=== PATIENT | male | born 1955 | race Caucasian/White ===

== ENCOUNTER 2021-08-10 12:59 | Emergency (ER) | payer BC ==
[2021-08-10 13:25] VITALS: BP 151/94; PULSE 78; RESP 20; TEMP 98.6
--- NOTE | 2021-08-10 14:02 | ED ---
Eye Problem HPI - General Chief complaint: Eye Problems Stated complaint: loss of vision, left eye Time Seen by Provider: 08/10/21 13:34 Source: patient, RN notes reviewed Mode of arrival: ambulatory Limitations: no limitations - History of Present Illness Initial comments: Patient is a 65-year-old male presenting to the emergency Department with compla ints of irritation to his left eye for the last 3 days. He states he started having some yellowish-green discharge from the eye, it was red and feels irritated. He denies any recent skin I pain, no floaters, no black spots. He does wear contacts, he did take out his left contact when his symptoms started. He denied any blurry vision before the contact was removed. He denies any injuries or trauma. He denies any headaches or dizziness. He has no further complaints. His vital signs are stable upon arrival. - Related Data Previous Rx's Medication Instructions Recorded Polymyxin B-Trimeth Sulf Ophth 1 drops LEFT EYE Q4H 7 Days #10 ml 08/10/21 [Polytrim Opthalmic] Allergies Allergy/AdvReac Type Severity Reaction Status Date / Time No Known Allergies Allergy Verified 08/10/21 13:25 Review of Systems ROS Statement: Those systems with pertinent positive or pertinent negative responses have been documented in the HPI. ROS Other: All systems not noted in ROS Statement are negative. Past Medical History Past Medical History: Hyperlipidemia, Hypertension History of Any Multi-Drug Resistant Organisms: None Reported Past Surgical History: Appendectomy Additional Past Surgical History / Comment(s): Fusion Past Psychological History: No Psychological Hx Reported Smoking Status: Never smoker Past Alcohol Use History: None Reported Past Drug Use History: None Reported General Exam - General Exam Comments Initial Comments: GENERAL: Patient is well-developed and well-nourished. Patient is nontoxic and in no acute distress. HEAD: Atraumatic, normocephalic. EYES: Pupils equal round and reactive to light, extraocular movements intact, sclera anicteric. Left eye is slightly injected, yellow/green drainage noted in the corners of the eyes. Eyelids were unremarkable. Visual acuity bilateral eyes is 20/25. ENT: Moist mucous membranes. NECK: Normal range of motion, supple without lymphadenopathy or JVD. LUNGS: Unlabored respirations. Breath sounds clear to auscultation bilaterally and equal. No wheezes rales or rhonchi. HEART: Regular rate and rhythm without murmurs, rubs or gallops. NEUROLOGICAL: Patient is alert and oriented x 3. SKIN: Warm, Dry, normal turgor, no rashes or lesions noted. Limitations: no limitations Course Vital Signs 08/10/21 13:21 Temperature 98.6 F Pulse Rate 78 Respiratory 20 Rate Blood Pressure 151/94 O2 Sat by Pulse 97 Oximetry Medical Decision Making - Medical Decision Making Patient is a 65-year-old male here with left eye irritation for the past 3 days. He has positive drainage, slightly injected. No foreign body seen. He does wear contacts, he did take the contact out the last 3 days when his symptoms began. His exam is consistent with a bacterial conjunctivitis. Patient be started on antibiotic eyedrops. I recommended following up with his eye doctor. He states he lives in [place] and will return there this weekend and will follow up when he is back home. Return parameters were discussed with him and he verbalized understanding. Disposition Clinical Impression: Conjunctivitis, left eye Disposition: HOME SELF-CARE Condition: Stable Instructions (If sedation given, give patient instructions): Conjunctivitis (ED) Additional Instructions: Please return to the Emergency Department if symptoms worsen or any other concerns. Use antibiotic eyedrops as prescribed. Follow-up with your eye doctor if symptoms persist. Prescriptions: Polymyxin B-Trimeth Sulf Ophth [Polytrim Opthalmic] 1 drops LEFT EYE Q4H 7 Days #10 ml Is patient prescribed a controlled substance at d/c from ED?: No Referrals: None,Stated [Primary Care Provider] - 1-2 days Time of Disposition: 14:02
== END 2021-08-10 14:22 | disposition home or self-care (01) ==
LOC: EC 12:59
DX: H10.89 Other conjunctivitis (principal); I10 Essential (primary) hypertension; R78.5 Finding of other psychotropic drug in blood; Z90.49 Acquired absence of other specified parts of digestive tract
CPT/HCPCS: 99283

== ENCOUNTER 2023-06-24 09:08 | Observation (INO) | payer MEDICARE ==
--- NOTE | 2023-06-24 09:32 | ED ---
General Adult HPI - General Chief complaint: Chest Pain Stated complaint: Chest Pain Time Seen by Provider: 06/24/23 09:31 Source: patient, RN notes reviewed Mode of arrival: wheelchair Limitations: no limitations - History of Present Illness Initial comments: Patient is a pleasant 67-year-old male presenting to the emergency department with concerns of chest discomfort. Onset of symptoms was a couple hours ago, awoke him from sleep. Discomfort feels like tightness without radiation. Patient may have some minimal dyspnea. No history of similar symptoms previously. Discomfort is 8/10. No associated diaphoresis or nausea. Symptoms are somewhat worse with exertion. Sometimes positions make symptoms worse as well. No calf pain. - Related Data Previous Rx's Medication Instructions Recorded Polymyxin B-Trimeth Sulf Ophth 1 drops LEFT EYE Q4H 7 Days #10 ml 08/10/21 [Polytrim Opthalmic] Allergies Allergy/AdvReac Type Severity Reaction Status Date / Time No Known Allergies Allergy Verified 06/24/23 09:13 Review of Systems ROS Statement: Those systems with pertinent positive or pertinent negative responses have been documented in the HPI. ROS Other: All systems not noted in ROS Statement are negative. Constitutional: Denies: fever Eyes: Denies: eye pain ENT: Denies: ear pain Respiratory: Reports: as per HPI. Denies: cough Cardiovascular: Reports: as per HPI, chest pain Endocrine: Denies: fatigue Gastrointestinal: Denies: abdominal pain Musculoskeletal: Denies: back pain Past Medical History Past Medical History: Hyperlipidemia, Hypertension History of Any Multi-Drug Resistant Organisms: None Reported Past Surgical History: Appendectomy Additional Past Surgical History / Comment(s): cranial Fusion Past Psychological History: No Psychological Hx Reported Smoking Status: Never smoker Past Alcohol Use History: None Reported Past Drug Use History: None Reported General Exam Limitations: no limitations General appearance: alert, in no apparent distress Head exam: Present: normocephalic Eye exam: Present: normal appearance Neck exam: Present: normal inspection Respiratory exam: Present: normal lung sounds bilaterally. Absent: chest wall tenderness Cardiovascular Exam: Present: regular rate, normal rhythm, normal heart sounds Expanded Peripheral pulses: 2+: Radial (R), Radial (L), Posterior Tibialis (R), Posterior Tibialis (L) GI/Abdominal exam: Present: soft. Absent: distended, tenderness Extremities exam: Present: normal inspection. Absent: pedal edema, calf tenderness Neurological exam: Present: alert Psychiatric exam: Present: normal affect, normal mood Skin exam: Present: normal color Course Vital Signs 06/24/23 06/24/23 06/24/23 09:13 10:14 10:24 Temperature 97.6 F Pulse Rate 79 80 77 Respiratory 18 16 20 Rate Blood Pressure 156/65 152/100 135/90 O2 Sat by Pulse 97 100 98 Oximetry 06/24/23 06/24/23 10:34 10:41 Temperature Pulse Rate 86 92 Respiratory 20 26 H Rate Blood Pressure 139/100 135/91 O2 Sat by Pulse 96 96 Oximetry EKG Findings - EKG Results: EKG: interpreted by ERMD, sinus rhythm, normal axis, normal QRS, normal ST/T Medical Decision Making - Medical Decision Making Was pt. sent in by a medical professional or institution (, PA, MARKETING SERVICES VICE PRESIDENT, urgent care, hospital, or long term...) When possible be specific @ -No Did you speak to anyone other than the patient for history (EMS, parent, family, police, friend...)? What history was obtained from this source @ -No Did you review nursing and triage notes (agree or disagree)? Why? @ -I reviewed and agree with nursing and triage notes Were old charts reviewed (outside hosp., previous admission, EMS record, old EKG, old radiological studies, urgent care reports/EKG's, long term records)? Report findings @ -No old charts were reviewed Differential Diagnosis (chest pain, altered mental status, abdominal pain women, abdominal pain men, vaginal bleeding, weakness, fever, dyspnea, syncope, headache, dizziness, GI bleed, back pain, seizure, CVA, palpatations, mental health, musculoskeletal)? @ -Differential Chest Pain: Stable Angina, Unstable Angina, STEMI, NSTEMI Aortic Dissection, Pneumothorax, Musculoskeletal, Esophageal Spasm GERD, Cholecystitis, Pancreatitis, Zoster, this is not meant to be an all-inclusive list. EKG interpreted by me (3pts min.). @ -As above X-rays interpreted by me (1pt min.). @ -Chest x-ray shows hyperinflation, no acute infiltrate CT interpreted by me (1pt min.). @ -None done U/S interpreted by me (1pt. min.). @ -None done What testing was considered but not performed or refused? (CT, X-rays, U/S, labs)? Why? @ -None What meds were considered but not given or refused? Why? @ -None Did you discuss the management of the patient with other professionals (professionals i.e. , PA, MARKETING SERVICES VICE PRESIDENT, lab, RT, psych nurse, social media content manager, [employer], teacher, contracting officer, bottle caser)? Give summary @ -Case was discussed with Dr. Ramsay, covering hospital call, who will admit. Was smoking cessation discussed for >3mins.? @ -No Was critical care preformed (if so, how long)? @ -No Were there social determinants of health that impacted care today? How? (Homelessness, low income, unemployed, alcoholism, drug addiction, transportation, low edu. Level, literacy, decrease access to med. care, senior care, rehab)? @ -No Was there de-escalation of care discussed even if they declined (Discuss DNR or withdrawal of care, Hospice)? DNR status @ -No What co-morbidities impacted this encounter? (DM, HTN, Smoking, COPD, CAD, Cancer, CVA, ARF, Chemo, Hep., AIDS, mental health diagnosis, sleep apnea, morbid obesity)? @ -None Was patient admitted / discharged? Hospital course, mention meds given and route, prescriptions, significant lab abnormalities, going to OR and other pertinent info. @ -Patient reevaluated. Patient and family updated on results and plan. Patient will be admitted with cardiac consult. Admission orders written. Undiagnosed new problem with uncertain prognosis? @ -No Drug Therapy requiring intensive monitoring for toxicity (Heparin, Nitro, Insulin, Cardizem)? @ -No Were any procedures done? @ -No Diagnosis/symptom? @ -Chest pain Acute, or Chronic, or Acute on Chronic? @ -Acute Uncomplicated (without systemic symptoms) or Complicated (systemic symptoms)? @ -default Side effects of treatment? @ -No Exacerbation, Progression, or Severe Exacerbation? @ -No Poses a threat to life or bodily function? How? (Chest pain, [place], [place], pneumonia, PE, COPD, DKA, ARF, appy, cholecystitis, CVA, Diverticulitis, Homicidal, Suicidal, threat to staff... and all critical care pts) @ -Chest pain and has potential for cardiac disease with potential for damage or life-threatening. - Lab Data Result diagrams: 10/08/23 09:36 06/24/23 09:36 Lab Results 06/24/23 06/24/23 06/24/23 Range/Units 09:36 09:36 09:36 WBC 6.9 (3.8-10.6) k/uL RBC 4.79 (4.30-5.90) m/uL Hgb 14.6 (13.0-17.5) gm/dL Hct 43.8 (39.0-53.0) % MCV 91.3 (80.0-100.0) fL MCH 30.4 (25.0-35.0) pg MCHC 33.3 (31.0-37.0) g/dL RDW 13.5 (11.5-15.5) % Plt Count 201 (150-450) k/uL MPV 7.8 Neutrophils % 60 % Lymphocytes % 25 % Monocytes % 7 % Eosinophils % 6 % Basophils % 0 % Neutrophils # 4.2 (1.3-7.7) k/uL Lymphocytes # 1.7 (1.0-4.8) k/uL Monocytes # 0.5 (0-1.0) k/uL Eosinophils # 0.4 (0-0.7) k/uL Basophils # 0.0 (0-0.2) k/uL PT 10.5 (9.0-12.0) sec INR 1.0 (<1.2) APTT 26.3 (22.0-30.0) sec Sodium 141 (137-145) mmol/L Potassium 3.9 (3.5-5.1) mmol/L Chloride 106 (98-107) mmol/L Carbon Dioxide 25 (22-30) mmol/L Anion Gap 10 mmol/L BUN 15 (9-20) mg/dL Creatinine 0.62 L (0.66-1.25) mg/dL Est GFR (CKD-EPI)AfAm >90 (>60 ml/min/1.73 sqM) Est GFR (CKD-EPI)NonAf >90 (>60 ml/min/1.73 sqM) Glucose 87 (74-99) mg/dL Calcium 9.0 (8.4-10.2) mg/dL Magnesium 1.8 (1.6-2.3) mg/dL Total Bilirubin 0.5 (0.2-1.3) mg/dL AST 38 (17-59) U/L ALT 46 (4-49) U/L Alkaline Phosphatase 72 (38-126) U/L Troponin I (0.000-0.034) ng/mL Total Protein 7.4 (6.3-8.2) g/dL Albumin 4.1 (3.5-5.0) g/dL 06/24/23 Range/Units 09:36 WBC (3.8-10.6) k/uL RBC (4.30-5.90) m/uL Hgb (13.0-17.5) gm/dL Hct (39.0-53.0) % MCV (80.0-100.0) fL MCH (25.0-35.0) pg MCHC (31.0-37.0) g/dL RDW (11.5-15.5) % Plt Count (150-450) k/uL MPV Neutrophils % % Lymphocytes % % Monocytes % % Eosinophils % % Basophils % % Neutrophils # (1.3-7.7) k/uL Lymphocytes # (1.0-4.8) k/uL Monocytes # (0-1.0) k/uL Eosinophils # (0-0.7) k/uL Basophils # (0-0.2) k/uL PT (9.0-12.0) sec INR (<1.2) APTT (22.0-30.0) sec Sodium (137-145) mmol/L Potassium (3.5-5.1) mmol/L Chloride (98-107) mmol/L Carbon Dioxide (22-30) mmol/L Anion Gap mmol/L BUN (9-20) mg/dL Creatinine (0.66-1.25) mg/dL Est GFR (CKD-EPI)AfAm (>60 ml/min/1.73 sqM) Est GFR (CKD-EPI)NonAf (>60 ml/min/1.73 sqM) Glucose (74-99) mg/dL Calcium (8.4-10.2) mg/dL Magnesium (1.6-2.3) mg/dL Total Bilirubin (0.2-1.3) mg/dL AST (17-59) U/L ALT (4-49) U/L Alkaline Phosphatase (38-126) U/L Troponin I <0.012 (0.000-0.034) ng/mL Total Protein (6.3-8.2) g/dL Albumin (3.5-5.0) g/dL Disposition Clinical Impression: Chest pain Disposition: ADMITTED IP TO THIS HOSP Is patient prescribed a controlled substance at d/c from ED?: No Referrals: Ricky Olmstead DO [Primary Care Provider] - 1-2 days Time of Disposition: 11:29
[2023-06-24] MEDS ORDERED: NITROGLYCERIN SL TABS 0.4 MG TAB SUBLINGUAL STA ×3 (09:45→10:35)
[2023-06-24] MEDS ORDERED: ASPIRIN 81 MG PO STA (09:45)
[2023-06-24 09:49] LABS: Basophils % (A) 0 %; Eosinophils # (A) 0.4 k/uL (0-0.7); Eosinophils % (A) 6 %; HCT 43.8 % (39.0-53.0); HGB 14.6 gm/dL (13.0-17.5); Lymphocytes # (A) 1.7 k/uL (1.0-4.8); Lymphocytes % (A) 25 %; MCH 30.4 pg (25.0-35.0); MCHC 33.3 g/dL (31.0-37.0); MCV 91.3 fL (80.0-100.0); Mean Platelet Volume 7.8; Monocytes # (A) 0.5 k/uL (0-1.0); Monocytes % (A) 7 %; Neutrophils # (A) 4.2 k/uL (1.3-7.7); Neutrophils % (A) 60 %; Platelet Count 201 k/uL (150-450); RBC 4.79 m/uL (4.30-5.90); RDW 13.5 % (11.5-15.5); WBC 6.9 k/uL (3.8-10.6)
[2023-06-24 10:01] LABS: ALT 46 U/L (4-49); AST 38 U/L (17-59); African American GFR (CKD) >90 (>60 ml/min/1.73 sqM); Albumin 4.1 g/dL (3.5-5.0); Alkaline Phosphatase 72 U/L (38-126); Anion Gap 10 mmol/L; Blood Urea Nitrogen 15 mg/dL (9-20); Carbon Dioxide 25 mmol/L (22-30); Chloride 106 mmol/L (98-107); Glucose 87 mg/dL (74-99); Magnesium 1.8 mg/dL (1.6-2.3); Non-African American GFR(CKD) >90 (>60 ml/min/1.73 sqM); Potassium 3.9 mmol/L (3.5-5.1); Sodium 141 mmol/L (137-145); Total Bilirubin 0.5 mg/dL (0.2-1.3); Total Protein 7.4 g/dL (6.3-8.2)
--- NOTE | 2023-06-24 10:04 | XR ---
EXAMINATION TYPE: XR chest 2V DATE OF EXAM: 06/24/2023 9:41 AM CLINICAL INDICATION:Male, 67 years old with history of Chest Pain; [facility] COMPARISON: None TECHNIQUE: XR chest 2V Frontal and lateral views of the chest. FINDINGS: Lines/Tubes: No indwelling lines are seen. Lungs/Pleura: There is no evidence of pleural effusion, focal consolidation, or pneumothorax. Mild pu lmonary hyperinflation and coarsening of the interstitium, likely chronic changes related to COPD. Pulmonary vascularity: Unremarkable. Heart/mediastinum: Cardiomediastinal silhouette is unremarkable. Musculoskeletal: No acute osseous pathology. Mild/moderate multilevel degenerative changes of the brenda jevon spine. Partially seen ACDF hardware in the lower cervical region. Other findings: None IMPRESSION: Changes of COPD/emphysema suggested, without evidence of acute superimposed airspace disease.
[2023-06-24 10:08] LABS: Partial Thromboplastin Time 26.3 sec (22.0-30.0); Prothrombin Time 10.5 sec (9.0-12.0)
[2023-06-24] MEDS ORDERED: MORPHINE SULFATE 4 MG/ML SYRINGE IVP STA (10:37)
[2023-06-24] MEDS ORDERED: NITROGLYCERIN SL TABS 0.4 MG TAB SUBLINGUAL PRN (11:31)
[2023-06-24] MEDS ORDERED: KETOROLAC 15 MG/ML 1 ML VIAL IVP STA (11:31)
[2023-06-24] MEDS ORDERED: NITROGLYCERIN OINT 1 INCH/GM PACKET TOPICAL SCH (12:00)
[2023-06-24] MEDS ORDERED: CYCLOBENZAPRINE 5 MG TAB PO STA (12:40)
[2023-06-24] MEDS ORDERED: MELATONIN 3 MG TABLET PO PRN (12:56)
[2023-06-24] MEDS ORDERED: HYDROcodone/APAP 5-325MG 1 EACH TAB PO PRN (12:56)
[2023-06-24] MEDS ORDERED: NALOXONE 0.4 MG/ML 1 ML VIAL IVP PRN (12:56)
[2023-06-24] MEDS ORDERED: CYCLOBENZAPRINE 5 MG TAB PO PRN (12:58)
--- NOTE | 2023-06-24 13:06 | P.HPIM ---
History of Present Illness H&P Date: 06/24/23 Patient is a 67-year-old male with history of hypertension, dyslipidemia,,... Who presented to the ER with complaints of chest pain. On arrival to the ER he was slightly hypertensive with a blood pressure of 156/65. Laboratory analysis including a CBC, coags, d-dimer, CMP, and troponin all of which were unremarkable. Troponin was less than 0.012. EKG was nonischemic. Chest x-ray showed no signs of pneumonia. The ER he was given aspirin and nitroglycerin. He had a nitro patch placed and images were made for admission. Patient seen and examined at bedside. He awoke with chest pain from sleep. The pain is lower left without radiation, he states some possible numbness in his left arm. No shortness of breath, no nausea, no jaw pain, no palitations. Had a bad cold approx 1 week ago. He did play golf yesterday, no other unusual activity. The nitro did not help his pain, but toradol seem to have lessened the pain. He reports a strong family history of cardiac disease. Vital signs reviewed General: nontoxic, mild distress due to pain, appears at stated age Derm: warm, dry Eyes: EOMI, no lid lag, anicteric sclera, pupils equal round reactive to light ENT: Nose and ears atraumatic, no thrush, no pharyngeal erythema Cardiovascular: S1S2 reg, no murmur, no edema, Pain to palpation over left chest wall. Lungs: clear to auscultation bilateral, no rhonchi, no rales, no wheeze, no accessory muscle use Abdominal: soft, nontender to palpation, no guarding, no appreciable organomegaly, normal bowel sounds Ext: no gross muscle atrophy, no contractures, pain to resisted pronation and supination of the left upper extremity, pain to palpation of the biceps tendon Neuro: CN II-XII grossly intact, light touch intact all 4 extremities, finger to nose within normal limits, Psych: Alert, oriented, appropriate affect Assessment/Plan: Chest pain, suspect musculoskeletal in origin but given HTN, HLD, and famimly hx recommend ASC rule out wiht negative troponin X 2 HTN HLD - Place patient in obs as discussed with ED attending - ASA 325 mg daily - D/C nitro past - continue with toradol 15 mg q 6 hours scheduled - norco 5/325 mg q 6 hours prn pain - flexeril 5 mg PO X 1 now - resume lisinopril 5 mg daily and atorvastatin 40 mg daily Imaging: EKG is reviewed by myself reveals normal sinus rhythm at a rate of 75, normal access, normal intervals, and nonspecific ST-T wave changes. Chest x-rays reviewed by myself shows no acute process Data Review: As per HPI The patient is admitted with an anticipated less than 2 mid night stay for chest pain. Surrogate decision-maker: CODE STATUS:full DVT prophylaxis: early ambulation Anticipated discharge date: Pending Clinical Course Anticipated discharge place: Pending Clinical Course This dictation was prepared using [employer] voice recognition software. Though every attempt is made to correct errors during dictation some may still exist. Past Medical History Past Medical History: Hyperlipidemia, Hypertension History of Any Multi-Drug Resistant Organisms: None Reported Past Surgical History: Appendectomy Additional Past Surgical History / Comment(s): Cervical Fusion C 03/24 Past Psychological History: No Psychological Hx Reported Smoking Status: Never smoker Past Alcohol Use History: None Reported Past Drug Use History: None Reported Medications and Allergies Home Medications Medication Instructions Recorded Confirmed Type Polymyxin B-Trimeth Sulf Ophth 1 drops LEFT EYE Q4H 7 Days #10 ml 08/10/21 Rx [Polytrim Opthalmic] Allergies Allergy/AdvReac Type Severity Reaction Status Date / Time No Known Allergies Allergy Verified 06/24/23 09:13 Physical Exam Osteopathic Statement: *. No significant issues noted on an osteopathic structural exam other than those noted in the History and Physical/Consult. Vitals: Vital Signs Temp Pulse Resp BP Pulse Ox 06/24/23 11:30 66 18 122/78 100 06/24/23 11:00 69 18 135/91 99 06/24/23 10:41 92 26 H 135/91 96 06/24/23 10:34 86 20 139/100 96 06/24/23 10:30 81 18 135/90 98 06/24/23 10:24 77 20 135/90 98 06/24/23 10:14 80 16 152/100 100 06/24/23 10:04 18 152/103 98 06/24/23 09:13 97.6 F 79 18 156/65 97 Intake and Output 06/23/23 06/24/23 06/24/23 22:59 06:59 14:59 Other: Weight 90.718 kg Results CBC & Chem 7: 06/24/23 09:36 06/24/23 09:36 Labs: Abnormal Lab Results - Last 24 Hours (Table) 06/24/23 Range/Units 09:36 Creatinine 0.62 L (0.66-1.25) mg/dL
[2023-06-24] MEDS: KETOROLAC 15 MG/ML 1 ML VIAL IVP SCH ×2 (17:30→23:47)
[2023-06-25 04:35] VITALS: PULSE 68
[2023-06-25] MEDS: KETOROLAC 15 MG/ML 1 ML VIAL IVP SCH (06:34)
[2023-06-25 08:48] VITALS: BP 145/82; RESP 16; TEMP 97.9
[2023-06-25] MEDS ORDERED: ASPIRIN 81 MG PO SCH (09:00)
[2023-06-25] MEDS ORDERED: ATORVASTATIN 40 MG TAB PO SCH (09:00)
[2023-06-25] MEDS ORDERED: ASPIRIN 325 MG TAB PO SCH (09:00)
[2023-06-25] MEDS ORDERED: lisinopriL 5 MG TAB PO SCH (09:00)
--- NOTE | 2023-06-25 10:44 | P.CRDCN ---
History of Present Illness History of present illness: HISTORY OF PRESENT ILLNESS: This is a 67-year-old male with a past medical history significant for hypertension and hyperlipidemia. 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 We have been asked to see the patient in consultation for chest pain. Patient examined at the bedside. Patient states he played golf on Sunday and yesterday he began having chest pain. He states the pain was on the left side of his chest and started yesterday morning. He denies any shortness of breath. He denied any radiation of the pain. He reports pain is worse with chest wall palpation and movement. EKG performed on admission reveals sinus mechanism with no acute ST-T wave changes. Patient's troponins are negative 3. Repeat EKG performed this morning at the time of examination with no acute ST-T wave changes noted. REVIEW OF SYSTEMS: At the time of my exam: CONSTITUTIONAL: Denies fever or chills. HEENT: Denies blurred vision, vision changes, or eye pain. Denies hemoptysis CARDIOVASCULAR: Denies chest pain. Denies orthopnea. Denies PND. Denies palpitations RESPIRATORY: Denies shortness of breath. GASTROINTESTINAL: Denies abdominal pain. Denies nausea or vomiting. HEMATOLOGIC: Denies bleeding disorders. GENITOURINARY: Denies any blood in urine. SKIN: Denies pruitis. Denies rash. PHYSICAL EXAM: VITAL SIGNS: Reviewed. GENERAL: Well-developed in no acute distress. HEENT: Head is normocephalic. Pupils are equal, round. Sclerae anicteric. Mucous membranes of the mouth are moist. Neck supple. No JVD or thyromegaly LUNGS: Respirations even and unlabored. Lungs essentially clear to auscultation bilaterally. HEART: Regular rate and rhythm. S1 and S2 heard. ABDOMEN: Soft. Nondistended. Nontender. EXTREMITIES: Normal range of motion. No clubbing or cyanosis. Peripheral pulses intact. No lower extremity edema NEUROLOGIC: Awake and alert. Oriented x 3. ASSESSMENT: Chest pain, troponins negative 3, musculoskeletal in nature Hypertension Hyperlipidemia PLAN: An acute coronary event has been ruled out Resume home cardiac medications No need to obtain echocardiogram per Dr. Hoff Patient may be discharged home today from a cardiac standpoint. We will sign off. Please reconsult if needed. Nurse practitioner note has been reviewed by physician. Signing provider agrees with the documented findings, assessment, and plan of care. Past Medical History Past Medical History: Hyperlipidemia, Hypertension History of Any Multi-Drug Resistant Organisms: None Reported Past Surgical History: Appendectomy Additional Past Surgical History / Comment(s): Cervical Fusion C 03/24 Past Psychological History: No Psychological Hx Reported Smoking Status: Never smoker Past Alcohol Use History: None Reported Past Drug Use History: None Reported Medications and Allergies Home Medications Medication Instructions Recorded Confirmed Type Albuterol Inhaler [Ventolin Hfa 1 - 2 puff INHALATION RT-Q6H PRN 06/24/23 06/24/23 History Inhaler] Ascorbic Acid [Vitamin C] 1,000 mg PO DAILY 06/24/23 06/24/23 History Atorvastatin [Lipitor] 40 mg PO DAILY 06/24/23 06/24/23 History Cholecalciferol [Vitamin D3 (25 25 mcg PO DAILY 06/24/23 06/24/23 History Mcg = 1000 Iu)] Cider Vinegar [Apple Cider Vinegar] 300 mg PO DAILY 06/24/23 06/24/23 History Tart Altamirano Supplement (Unknown 1 dose PO DAILY 06/24/23 06/24/23 History Strength) lisinopriL [Zestril] 5 mg PO DAILY 06/24/23 06/24/23 History Cyclobenzaprine [Flexeril] 5 mg PO TID PRN #21 tab 06/25/23 Rx Ibuprofen [Motrin] 600 mg PO Q8HR PRN #30 tab 06/25/23 Rx Allergies Allergy/AdvReac Type Severity Reaction Status Date / Time No Known Allergies Allergy Verified 06/24/23 15:13 Physical Exam Vitals: Vital Signs Temp Pulse Resp BP Pulse Ox 06/25/23 06:31 68 18 144/89 98 06/25/23 04:00 68 18 126/82 98 06/25/23 00:00 73 18 129/83 98 06/24/23 22:15 79 18 149/84 97 06/24/23 11:30 66 18 122/78 100 06/24/23 11:00 69 18 135/91 99 06/24/23 10:41 92 26 H 135/91 96 06/24/23 10:34 86 20 139/100 96 06/24/23 10:30 81 18 135/90 98 06/24/23 10:24 77 20 135/90 98 06/24/23 10:14 80 16 152/100 100 06/24/23 10:04 18 152/103 98 06/24/23 09:13 97.6 F 79 18 156/65 97 Results 06/24/23 09:36 06/24/23 09:36 Cardiac Enzymes 06/24/23 06/24/23 06/24/23 Range/Units 09:36 09:36 12:50 AST 38 (17-59) U/L Troponin I <0.012 <0.012 (0.000-0.034) ng/mL 06/24/23 Range/Units 15:49 AST (17-59) U/L Troponin I <0.012 (0.000-0.034) ng/mL Coagulation 06/24/23 Range/Units 09:36 PT 10.5 (9.0-12.0) sec APTT 26.3 (22.0-30.0) sec CBC 06/24/23 Range/Units 09:36 WBC 6.9 (3.8-10.6) k/uL RBC 4.79 (4.30-5.90) m/uL Hgb 14.6 (13.0-17.5) gm/dL Hct 43.8 (39.0-53.0) % Plt Count 201 (150-450) k/uL Comprehensive Metabolic Panel 06/24/23 Range/Units 09:36 Sodium 141 (137-145) mmol/L Potassium 3.9 (3.5-5.1) mmol/L Chloride 106 (98-107) mmol/L Carbon Dioxide 25 (22-30) mmol/L BUN 15 (9-20) mg/dL Creatinine 0.62 L (0.66-1.25) mg/dL Glucose 87 (74-99) mg/dL Calcium 9.0 (8.4-10.2) mg/dL AST 38 (17-59) U/L ALT 46 (4-49) U/L Alkaline Phosphatase 72 (38-126) U/L Total Protein 7.4 (6.3-8.2) g/dL Albumin 4.1 (3.5-5.0) g/dL Current Medications Generic Name Dose Route Start Last Admin Trade Name Freq PRN Reason Stop Dose Admin Hydrocodone Bitart/Acetaminophen 1 each 06/24/23 12:56 Hydrocodone/Apap 5-325mg 1 Each Tab PO Q4HR PRN Moderate Pain (Scale 4 to 6) Aspirin 325 mg 06/25/23 09:00 Aspirin 325 Mg Tab PO DAILY [facility] Atorvastatin Calcium 40 mg 06/25/23 09:00 Atorvastatin 40 Mg Tab PO DAILY [facility] Cyclobenzaprine HCl 5 mg 06/24/23 12:58 Cyclobenzaprine 5 Mg Tab PO TID PRN Muscle Spasm Ketorolac Tromethamine 15 mg 06/24/23 18:00 06/25/23 06:34 Ketorolac 15 Mg/Ml 1 Ml Vial IVP 06/29/23 12:59 15 mg Q6HR [facility] Administration Lisinopril 5 mg 06/25/23 09:00 Lisinopril 5 Mg Tab PO DAILY [facility] Melatonin 3 mg 06/24/23 12:56 Melatonin 3 Mg Tablet PO HS PRN Insomnia Naloxone HCl 0.2 mg 06/24/23 12:56 Naloxone 0.4 Mg/Ml 1 Ml Vial IVP Q2M PRN Opioid Reversal Nitroglycerin 0.4 mg 06/24/23 11:31 Nitroglycerin Sl Tabs 0.4 Mg Tab SUBLINGUAL Q5M PRN Chest Pain 06/24/23 09:36 06/24/23 09:36
[2023-06-25 11:06] LABS: Chol/HDL Ratio 4.09 Ratio; LDL Cholesterol,Calculated 75.5 mg/dL (0.0-131.0)
--- NOTE | 2023-06-25 15:05 | P.DS ---
Providers Date of admission: 06/24/23 11:31 Expected date of discharge: 06/25/23 Attending physician: Jacqui Ramsay DO Consults: 06/24/23 11:31 Consult Physician Urgent Consulting Provider: Siva Kolb Consult Reason/Comments: cp Do you want consulting provider notified?: Yes Primary care physician: Ricky Olmstead DO Hospital Course: Discharge Diagnosis: Musculoskeletal chest pain, acute coronary syndrome ruled out Suspect shoulder injury Hypertension Dyslipidemia Hospital Course: Patient is a 67-year-old male with history of hypertension, dyslipidemia, and remote tobacco dependency who presented to the ER with complaints of chest pain. On arrival to the ER he was slightly hypertensive with a blood pressure of 156/65. Laboratory analysis including a CBC, coags, d-dimer, CMP, and troponin all of which were unremarkable. Troponin was less than 0.012. EKG was nonischemic. Chest x-ray showed no signs of pneumonia. The ER he was given aspirin and nitroglycerin. He had a nitro patch placed and arrangements were made for admission. Physical exam testing appeared that he had musculoskeletal chest pain, likely related to shoulder/rotator cuff abnormality. His Nitropaste was removed. He was started on Toradol and Flexeril. He had significant improvement in his pain. Serial troponins were followed and remained negative. He was seen by cardiology who felt this was noncardiac chest pain. He was determined stable for discharge home. Follow-up: Patient will take Motrin 600 every 8 hours around the clock for 3 days and then every 8 hours as needed for pain, Flexeril 5 mg 3 times daily for pain, follow up with his primary care physician Dr. Olmstead in 1-2 days. Patient seen and examined at bedside. Pain is better. Still some pain with deep inspiration or moving. No other complaints currently. Feels comfortable: Home and with plan of care. Vital signs reviewed and stable. General: nontoxic, no distress, appears at stated age Cardiovascular: S1S2 reg, no murmur, positive posterior tibial pulse bilateral, Lungs: CTA bilateral, no rhonchi, no rales , no accessory muscle use Ext: no gross muscle atrophy, no edema b/l lower extremities, no contractures Psych: Alert, oriented, appropriate affect A total of 25 minutes of time were spent preparing this complex discharge summary. Patient was discharged on 06/25/23. This dictation was prepared using [employer] voice recognition software. Though every attempt is made to correct errors during dictation some may still exist. Plan - Discharge Summary New Discharge Prescriptions: New Cyclobenzaprine [Flexeril] 5 mg PO TID PRN #21 tab PRN Reason: Muscle Spasm Ibuprofen [Motrin] 600 mg PO Q8HR PRN #30 tab PRN Reason: Pain Continue Cholecalciferol [Vitamin D3 (25 Mcg = 1000 Iu)] 25 mcg PO DAILY Albuterol Inhaler [Ventolin Hfa Inhaler] 1 - 2 puff INHALATION RT-Q6H PRN PRN Reason: Shortness Of Breath lisinopriL [Zestril] 5 mg PO DAILY Tart Altamirano Supplement (Unknown Strength) 1 dose PO DAILY Cider Vinegar [Apple Cider Vinegar] 300 mg PO DAILY Atorvastatin [Lipitor] 40 mg PO DAILY Ascorbic Acid [Vitamin C] 1,000 mg PO DAILY Discharge Medication List Albuterol Inhaler [Ventolin Hfa Inhaler] 1 - 2 puff INHALATION RT-Q6H PRN 06/24/23 [History] Ascorbic Acid [Vitamin C] 1,000 mg PO DAILY 06/24/23 [History] Atorvastatin [Lipitor] 40 mg PO DAILY 06/24/23 [History] Cholecalciferol [Vitamin D3 (25 Mcg = 1000 Iu)] 25 mcg PO DAILY 06/24/23 [History] Cider Vinegar [Apple Cider Vinegar] 300 mg PO DAILY 06/24/23 [History] Tart Altamirano Supplement (Unknown Strength) 1 dose PO DAILY 06/24/23 [History] lisinopriL [Zestril] 5 mg PO DAILY 06/24/23 [History] Cyclobenzaprine [Flexeril] 5 mg PO TID PRN #21 tab 06/25/23 [Rx] Ibuprofen [Motrin] 600 mg PO Q8HR PRN #30 tab 06/25/23 [Rx] Follow up Appointment(s)/Referral(s): Ricky Olmstead DO [Primary Care Provider] - 1-2 days Patient Instructions/Handouts: Shoulder Sprain (GEN) Activity/Diet/Wound Care/Special Instructions: Activity: As tolerated Diet: Heart Health Special Instructions: Take Motrin 600 mg 3 times daily around the clock for the next 3 days, he can then take it 3 times daily as needed Take Flexeril as needed for muscle cramping and spasms. Do not drive or operate heavy machinery when taking this medication Please follow-up with your primary care physician for further instructions on your shoulder pain. Discharge Disposition: HOME SELF-CARE
== END 2023-06-25 10:23 | disposition home or self-care (01) ==
LOC: EC 09:08 → 6NMEDSUR 11:31
PROVIDERS: ADMIT Internal Medicine; ATTEND Internal Medicine
DX: R07.89 Other chest pain (principal); I10 Essential (primary) hypertension; E78.5 Hyperlipidemia, unspecified; Z82.49 Family history of ischemic heart disease and other diseases of the circulatory system
CPT/HCPCS: 96365; 96366 ×2; 96367; 99285; 36415; 93005; 85379; 80061; 80053; 83735; 84484; 85025; 85610; 85730; 71046; G0378 ×2; J2270; J1885 ×2